=== PATIENT | female | born 1985 | race American Indian/Alaskan Native ===

== ENCOUNTER 2017-12-30 03:52 | Emergency (ER) | payer BC, MEDICAID ==
[~2017-12-30] VITALS: Ht 167.6 cm; Wt 109.0 kg
[2017-12-30 03:55] VITALS: BP 130/61
[2017-12-30] MEDS ORDERED: SODIUM CHLORIDE 0.9% 1,000 ML IV ONE (04:10)
== END 2017-12-30 07:47 | disposition home or self-care (01) ==
LOC: ER 04:20
DX: R56.9 Unspecified convulsions (principal); N39.498 Other specified urinary incontinence; F31.9 Bipolar disorder, unspecified; Z91.19 Patient's noncompliance with other medical treatment and regimen; Z90.10 Acquired absence of unspecified breast and nipple; Z88.8 Allergy status to other drugs, medicaments and biological substances
CPT/HCPCS: 99283; J7030

== ENCOUNTER 2018-02-01 01:38 | Emergency (ER) | payer BC, MEDICAID ==
[~2018-02-01] VITALS: Ht 167.6 cm; Wt 109.0 kg
[2018-02-01 05:25] VITALS: BP 114/43
[2018-02-01] MEDS ORDERED: ACETAMINOPHEN 325MG TABLET PO STA (06:33)
[2018-02-01 06:49] LABS: CLARITY URINE CLEAR (CLEAR); COLOR URINE YELLOW (YELLOW); KETONES URINE TRACE (NEGATIVE); LEUKOCYTE ESTERASE URINE NEGATIVE (NEGATIVE); NITRITE URINE NEGATIVE (NEGATIVE); OCCULT BLOOD URINE 2+ (NEGATIVE); PROTEIN URINE NEGATIVE (NEGATIVE); SPECIFIC GRAVITY URINE 1.027 (1.005-1.030)
[2018-02-01 07:06] LABS: CHLORIDE 105 mEq/L (98-107)
[2018-02-01 07:07] LABS: INR 1.1; PROTHROMBIN TIME 11.2 sec (9.4-11.6)
[2018-02-01 07:12] LABS: BASOPHILS % 0.4 % (0.0-2.0); EOSINOPHILS % 3.7 % (0.0-5.0); HEMATOCRIT. 29.9 % (36.0-48.0); HEMOGLOBIN. 9.4 g/dL (12.0-16.0); LYMPHOCYTES % 30.4 % (20.0-50.0); MEAN CORPUSCULAR HEMOGLOBIN 24.1 pg (28.0-32.0); MEAN CORPUSCULAR VOLUME 76.3 fL (81.0-99.0); MEAN PLATELET VOLUME 6.8 fl (7.4-10.4); NEUTROPHILS % 55.5 % (40.0-76.0); PLATELET 306 x1000/uL (130-400); RED BLOOD CELL COUNT 3.92 mill/uL (4.2-5.4)
== END 2018-02-01 07:06 | disposition left against medical advice (07) ==
LOC: ER 04:32
DX: R60.0 Localized edema (principal); M79.605 Pain in left leg; F31.9 Bipolar disorder, unspecified; F17.200 Nicotine dependence, unspecified, uncomplicated; Z88.8 Allergy status to other drugs, medicaments and biological substances; Z90.12 Acquired absence of left breast and nipple
CPT/HCPCS: 36415; 80053; 81003; 81025; 83880; 85025; 85610; 99284

== ENCOUNTER 2022-02-18 04:22 | Emergency (ER) | payer MEDICAID, OTHER ==
[~2022-02-18] VITALS: Ht 170.2 cm; Wt 140.6 kg
[2022-02-18] MEDS ORDERED: DEXT15SY3 PO (05:22)
[2022-02-18] MEDS ORDERED: TOPUD PO (05:22)
[2022-02-18 05:41] VITALS: BP 105/77
== END 2022-02-18 05:41 | disposition home or self-care (01) ==
LOC: ER 04:48
DX: R05.9 Cough, unspecified (principal); Z59.00 Homelessness unspecified; Z98.890 Other specified postprocedural states; Z88.8 Allergy status to other drugs, medicaments and biological substances
CPT/HCPCS: 99281